=== PATIENT | female | born 1980 | race Hispanic/Latino ===

== ENCOUNTER 2019-12-09 15:42 | Observation (INO) | payer OTHER, BC ==
[~2019-12-09] VITALS: Ht 154.9 cm; Wt 88.5 kg
[~2019-12-09 15:42] MED LIST: METO-391 PO; NORE-8 PO
== END 2019-12-09 17:55 | disposition home or self-care (01) ==
LOC: EDH 15:42 → LDH 15:43
PROVIDERS: ADMIT Specialist; ATTEND Specialist
DX: O9A.213 Injury, poisoning and certain other consequences of external causes complicating pregnancy, third trimester (principal); M54.5 Low back pain; R10.30 Lower abdominal pain, unspecified; Z3A.29 29 weeks gestation of pregnancy; V89.2XXA Person injured in unspecified motor-vehicle accident, traffic, initial encounter; Y93.89 Activity, other specified; Y92.89 Other specified places as the place of occurrence of the external cause; Y99.8 Other external cause status
CPT/HCPCS: 59025; 76819; 99284; G0378

== ENCOUNTER 2020-01-11 16:28 | Observation (INO) | payer BC, OTHER ==
[~2020-01-11] VITALS: Ht 154.9 cm; Wt 88.5 kg
== END 2020-01-11 18:30 | disposition home or self-care (01) ==
LOC: RAH 16:28 → LDH 16:29
PROVIDERS: ADMIT Specialist; ATTEND Specialist
DX: O24.419 Gestational diabetes mellitus in pregnancy, unspecified control (principal); Z3A.33 33 weeks gestation of pregnancy
CPT/HCPCS: 59025; 76819; G0378 ×2

== ENCOUNTER 2020-01-19 10:16 | Observation (INO) | payer BC ==
[~2020-01-19] VITALS: Ht 154.9 cm; Wt 86.6 kg
[2020-01-19 10:50] LABS: BASOPHILS % (AUTO) 0.2 % (0.0-5.0); EOSINOPHILS % (AUTO) 0.8 % (0.0-8.0); LYMPHOCYTES % (AUTO) 39.2 % (21.0-51.0); MEAN CORPUSCULAR HEMOGLOBIN 30.3 pg (27.0-33.0); MEAN CORPUSCULAR HGB CONC 32.9 g/dL (32.0-36.0); MEAN CORPUSCULAR VOLUME 92.1 fL (79-99); MONOCYTES % (AUTO) 6.4 % (3.0-13.0); NEUTROPHILS % (AUTO) 53.1 % (40.0-77.0); PLATELET COUNT (AUTO) 284 K/uL (130-400); RED BLOOD CELL COUNT(AUTO) 4.45 MIL/uL (4.00-5.50); RED CELL DISTRIBUTION WIDTH 13.4 % (11.0-15.5); WHITE BLOOD COUNT (AUTO) 9.6 K/uL (4.8-10.8)
[2020-01-19 10:52] LABS: APPEARANCE,URINE Clear (CLEAR); BILIRUBIN,URINE Negative (NEGATIVE); COLOR,URINE Yellow (YELLOW); GLUCOSE, URINE (UA) Negative (NEGATIVE); KETONES,URINE Negative (NEGATIVE); LEUKOCYTE ESTERASE ,URINE Negative (NEGATIVE); NITRATE,URINE Negative (NEGATIVE); OCCULT BLOOD,URINE Negative (NEGATIVE); PROTEIN,URINE Negative (NEGATIVE)
[2020-01-19 11:06] LABS: CREATININE 0.8 mg/dL (0.5-1.5); POTASSIUM 3.7 mmol/L (3.5-5.1)
[2020-01-19 11:08] LABS: INR 0.86 (0.85-1.15); PARTIAL THROMBOPLASTIN TIME 27.4 SEC (26.3-35.5); PROTHROMBIN TIME 9.3 SEC (9.6-11.6)
[2020-01-19 11:10] LABS: ALBUMIN 2.9 g/dL (3.5-5.0); BILIRUBIN,TOTAL 0.2 mg/dL (0.2-1.0); TOTAL PROTEIN, SERUM 7.6 g/dL (6.0-8.3); URIC ACID 5.8 mg/dL (2.6-7.2)
[2020-01-19 14:55] VITALS: BP 159/89
--- NOTE | 2020-01-19 15:00 | NUR ---
received pt from L&D via wheelchair, ushered to bed comfortably. Admission assessment and care done, informed on plan of care. instructed on 24 hour urine collection. FHT taken via handheld doppler - 130/min. Addendum: 01/19/20 at 1542 by BELINDA BALDWIN RN Amended: Links added.
[2020-01-19 20:04] VITALS: BP 124/91
--- NOTE | 2020-01-19 20:15 | NUR ---
NST started. US and [place] applied to abdomen searching heart tone. Patient informed of 30 minutes monitoring.
--- NOTE | 2020-01-19 20:50 | NUR ---
FHT baseline 130 with good acceleration strip reactive. no do and no contraction observe. Patient claimed, " I feel the baby is kicking.' Addendum: 01/20/20 at 0038 by ANNIE BANKS RN RN no deceleration,
--- NOTE | 2020-01-19 21:40 | NUR ---
Patient; Patient claimed , " I took Metoprolol ER. " . Dr. Macdonald informed and showed him the medication. He said, " Just give her the Metoprolol Tartrate 100 mg p.o. and she can continue the Metoprolol ER once she goes home. Patient informed.
[2020-01-19] MEDS: METOPROLOL TARTRATE 50 MG TAB PO SCH (21:47)
[2020-01-19 23:24] VITALS: BP 135/88
[2020-01-20 03:52] VITALS: BP 116/71
[2020-01-20 07:35] VITALS: BP 135/80
--- NOTE | 2020-01-20 08:21 | NUR ---
Dr. Macdonald at bedside, ordered that pt will be discharged after the 24 hour urine collection Addendum: 01/20/20 at 0825 by BELINDA BALDWIN RN Amended: Links added.
[2020-01-20] MEDS: METOPROLOL TARTRATE 50 MG TAB PO SCH (08:56)
--- NOTE | 2020-01-20 08:59 | NUR ---
EFM started at 08, discontinued at 09 FHT - 125 with 15 x15 accelerations, no decels, no contractions movement felt by pt reactive strip Addendum: 01/20/20 at 0958 by BELINDA BALDWIN RN Amended: Links added.
[2020-01-20 11:22] VITALS: BP 120/75
--- NOTE | 2020-01-20 15:08 | NUR ---
pt is discharged, verbal and written discharge instructions given, pls refer to [facility]. informed of the follow up appointment. No prescription given. informed to call the doctor for further concerns. pt voiced understanding to all things discussed. Addendum: 01/20/20 at 1535 by BELINDA BALDWIN RN Amended: Links added.
[2020-01-20 15:27] VITALS: BP 128/89
[2020-01-20 15:32] LABS: CREATININE,SERUM FOR CRCL 0.8 mg/dL (0.6-1.3)
[2020-01-20 15:33] LABS: COLLECTION PERIOD,URINE 24 HR; TOTAL VOLUME 24HRS,URINE 1350 mL; TPROTEIN TIMED,URINE 7 mg/dL; TPROTEIN U,24HR CALC 95 mg/24HR (0-165)
--- NOTE | 2020-01-20 15:55 | NUR ---
pt is dismissed in stable condition, brought to private car via wheelchair by Deanne Luo pcp Addendum: 01/20/20 at 1556 by BELINDA BALDWIN RN Amended: Links added.
== END 2020-01-20 15:55 | disposition home or self-care (01) ==
LOC: LDH 10:16 → WSH 14:46
PROVIDERS: ADMIT Specialist; ATTEND Specialist
DX: O13.3 Gestational [pregnancy-induced] hypertension without significant proteinuria, third trimester (principal); Z86.32 Personal history of gestational diabetes; Z3A.35 35 weeks gestation of pregnancy
CPT/HCPCS: 36415; 59025 ×2; 76819; 80053; 81003; 82575; 82948 ×4; 84156; 84550; 85025; 85384; 85610; 85730; G0378 ×16

== ENCOUNTER 2020-01-25 14:03 | Observation (INO) | payer BC ==
[~2020-01-25] VITALS: Ht 154.9 cm; Wt 87.5 kg
[2020-01-25 15:00] VITALS: BP 137/86
[2020-01-25 15:48] LABS: HEMATOCRIT 38.2 % (36-48); MEAN CORPUSCULAR HGB CONC 33.5 g/dL (32.0-36.0); MEAN CORPUSCULAR VOLUME 92.5 fL (79-99); RED BLOOD CELL COUNT(AUTO) 4.13 MIL/uL (4.00-5.50); RED CELL DISTRIBUTION WIDTH 13.7 % (11.0-15.5); WHITE BLOOD COUNT (AUTO) 9.6 K/uL (4.8-10.8)
[2020-01-25 15:49] LABS: APPEARANCE,URINE Clear (CLEAR); BILIRUBIN,URINE Negative (NEGATIVE); COLOR,URINE Yellow (YELLOW); GLUCOSE, URINE (UA) Negative (NEGATIVE); KETONES,URINE Negative (NEGATIVE); LEUKOCYTE ESTERASE ,URINE Negative (NEGATIVE); NITRATE,URINE Negative (NEGATIVE); OCCULT BLOOD,URINE Negative (NEGATIVE); PH,URINE 6.5 (5.0-8.0); PROTEIN,URINE Negative (NEGATIVE); UROBILINOGEN,URINE 0.2 mg/dL (0.2-1.0)
[2020-01-25] MEDS ORDERED: LACTATED RINGERS 1000ML 1,000 ML IV SCH (16:45)
[2020-01-27 08:14] LABS: HEPATITIS Bs ANTIGEN SCREEN P Negative (Negative)
== END 2020-01-26 08:44 | disposition home or self-care (01) ==
LOC: LDH 14:03
PROVIDERS: ADMIT Specialist; ATTEND Specialist
DX: O26.893 Other specified pregnancy related conditions, third trimester (principal); O41.8X30 Other specified disorders of amniotic fluid and membranes, third trimester, not applicable or unspecified; Z3A.35 35 weeks gestation of pregnancy
CPT/HCPCS: 36415; 76815; 81003; 85027; 86592; 86850; 86900; 86901; 87340; 96360 ×2; 96361 ×3; G0378 ×11; J7120 ×2

== ENCOUNTER 2020-07-18 07:30 | Day surgery (SDC) | payer BC ==
[2020-07-11 16:20] LABS: BASOPHILS % (AUTO) 0.3 % (0.0-5.0); HEMATOCRIT 37.1 % (36-48); LYMPHOCYTES % (AUTO) 40.9 % (21.0-51.0); MEAN CORPUSCULAR HEMOGLOBIN 28.6 pg (27.0-33.0); MEAN CORPUSCULAR HGB CONC 31.8 g/dL (32.0-36.0); MONOCYTES % (AUTO) 5.9 % (3.0-13.0); NEUTROPHILS % (AUTO) 50.4 % (40.0-77.0); PLATELET COUNT (AUTO) 371 K/uL (130-400); RED BLOOD CELL COUNT(AUTO) 4.12 MIL/uL (4.00-5.50); RED CELL DISTRIBUTION WIDTH 14.2 % (11.0-15.5); WHITE BLOOD COUNT (AUTO) 10.5 K/uL (4.8-10.8)
[2020-07-11 16:30] LABS: CREATININE 0.6 mg/dL (0.5-1.5); POTASSIUM 4.2 mmol/L (3.5-5.1)
[2020-07-12 10:26] VITALS: BP 129/79
[~2020-07-18] VITALS: Ht 157.5 cm; Wt 86.8 kg
[2020-07-18] VITALS (18 sets, daily range): BP systolic 95–123; BP diastolic 52–77
[~2020-07-18 07:30] MED LIST changes: +AEC81 PO; +LOSA50TA64 PO; -METO-391 PO; +METO-409 PO; -NORE-8 PO
[2020-07-18] MEDS ORDERED: GLYCOPYRROLATE 1 MG/5 ML SYRINGE ONE ×2 (07:52→09:28)
[2020-07-18] MEDS ORDERED: LIDOCAINE PF 2% 5ML ABBOJECT ONE ×3 (07:52→09:30)
[2020-07-18] MEDS ORDERED: PROPOFOL 10 MG/ML 20ML VIAL IV ONE ×2 (07:52→09:28)
[2020-07-18] MEDS ORDERED: FENTANYL CITRATE PF 50 MCG/1 ML 2ML VIAL ONE ×3 (07:52→10:16)
[2020-07-18] MEDS ORDERED: ONDANSETRON HCL 4 MG/2 ML VIAL ONE ×2 (07:52→09:28)
[2020-07-18] MEDS ORDERED: DEXAMETHASONE SOD PHOSPHATE 10MG/ML 1ML VIAL ONE ×2 (07:52→09:28)
[2020-07-18] MEDS ORDERED: SUCCINYLCHOLINE CHLORIDE 20 MG/ML 10 ML VIAL ONE ×3 (07:52→09:30)
[2020-07-18] MEDS ORDERED: ROCURONIUM 10MG/1ML SYR 10 MG/ML ML ONE ×2 (07:53→09:29)
[2020-07-18] MEDS ORDERED: MIDAZOLAM HCL 1 MG/ML 2ML VIAL ONE ×2 (07:53→09:28)
[2020-07-18] MEDS ORDERED: NEOSTIGMINE 5MG/5ML SYR IV ONE ×2 (07:53→09:28)
[2020-07-18] MEDS ORDERED: MEPERIDINE-PF 25 MG/ML SYG ONE ×2 (07:55→11:14)
[2020-07-18] MEDS ORDERED: SODIUM CHLORIDE 0.9% 1000ML 1,000 ML IV SCH (08:00)
[2020-07-18] MEDS ORDERED: LACTATED RINGERS 1000ML 1,000 ML IV ONE (08:05)
[2020-07-18] MEDS: CEFAZOLIN SODIUM 1 GM VIAL IVP ONE ×2 (08:16→09:55)
[2020-07-18] MEDS ORDERED: BUPIVACAINE/PF 0.5% 30ML VIAL ONE (08:31)
[2020-07-18] MEDS ORDERED: ACETAMINOPHEN-CODEINE 300/30MG TAB ONE (12:16)
== END 2020-07-18 13:10 | disposition home or self-care (01) ==
LOC: DAH 07:30
PROVIDERS: ATTEND Surgery
DX: K43.2 Incisional hernia without obstruction or gangrene (principal); Z20.822 Contact with and (suspected) exposure to COVID-19; I10 Essential (primary) hypertension; Z79.899 Other long term (current) drug therapy; Z79.82 Long term (current) use of aspirin; Z98.890 Other specified postprocedural states
CPT/HCPCS: 36415; 49560; 49568; 80048; 85025; A4215; A4221; A4222; A4223; A4452; A4600; A4663; C1781; C9803; J0330 ×3; J0690; J1100 ×2; J2001 ×2; J2175 ×2; J2250; J2405; J2704 ×2; J2710 ×2; J3010 ×2; J3490 ×3; J7120 ×2; U0003